=== PATIENT | female | born 1970 | race Caucasian/White ===

== ENCOUNTER 2020-08-27 17:09 | Inpatient (IN) | payer OTHER ==
[~2020-08-27] VITALS: Ht 172.7 cm; Wt 74.4 kg
[2020-08-29] MEDS ORDERED: ACID REDUCER20 M1 PO (11:10)
[2020-08-29] MEDS ORDERED: SYNTHROID125 MCG PO (11:10)
[2020-08-29] MEDS ORDERED: TENORMIN25 MG PO (11:10)
[2020-08-29] MEDS ORDERED: PROZAC PO (11:11)
[2020-08-29] MEDS ORDERED: [UNRECOGNIZED DRUG - OTHER] PO (11:11)
[2020-09-05] MEDS ORDERED: PROZAC10 M1 (11:58)
[2020-09-05] MEDS ORDERED: TEMAZEPAM7.5 MG (11:58)
== END 2020-09-07 15:31 | disposition home or self-care (01) | DRG 624 ==
LOC: O/R 09-05 05:58 → SURH 09-05 07:00
PROVIDERS: Obstetrics & Gynecology; ADMIT Plastic Surgery; ATTEND Plastic Surgery
PROC: 0UT70ZZ Resection of Bilateral Fallopian Tubes, Open Approach (ICD-10-PCS; 2020-09-05)
PROC: 0JB80ZZ Excision of Abdomen Subcutaneous Tissue and Fascia, Open Approach (ICD-10-PCS; principal; 2020-09-05 07:00)
PROC: 0UT90ZZ Resection of Uterus, Open Approach (ICD-10-PCS; 2020-09-05 07:00)
DX: E66.01 Morbid (severe) obesity due to excess calories (principal); N93.8 Other specified abnormal uterine and vaginal bleeding; N72 Inflammatory disease of cervix uteri; D26.1 Other benign neoplasm of corpus uteri; N80.0 Endometriosis of uterus